=== PATIENT | female | born 1985 | race Caucasian/White ===

== ENCOUNTER 2022-04-15 19:24 | Emergency (ER) | payer OTHER ==
[~2022-04-15] VITALS: Ht 154.9 cm; Wt 70.4 kg
[2022-04-15 20:06] VITALS: BP 123/75
--- NOTE | 2022-04-15 20:10 | NUR ---
PT TO THE BATHROOM TO URINATE FOR URINE COLLECTION
[2022-04-15] MEDS ORDERED: ALUMINUM HYD/MAG/SIMETHICONE 30 ML UDC PO ONE (21:05)
[2022-04-15] MEDS ORDERED: FAMOTIDINE 20 MG TAB PO ONE (21:05)
--- NOTE | 2022-04-15 22:11 | NUR ---
PATIENT LEFT WITHOUT BEING SEEN BY DR. GRANADOS. NO FURTHER CARE PROVIDED FOR PATIENT.
--- NOTE | 2022-04-15 22:11 | NUR ---
called pt phone number. per patient's daughter, pt is home and sleeping
== END 2022-04-15 22:11 | disposition left against medical advice (07) ==
LOC: MED 19:24
DX: R10.13 Epigastric pain (principal); Z53.21 Procedure and treatment not carried out due to patient leaving prior to being seen by health care provider